=== PATIENT | male | born 1945 | race Caucasian/White ===

== ENCOUNTER 2022-02-09 09:07 | Inpatient (IN) ==
[2022-02-09] MEDS ORDERED: Iopamidol - 370 500 ML MLS IVP ONE (09:30)
[2022-02-09 09:39] LABS: Basophils % 0.2 %; Hemoglobin 10.5 g/dL (12.9-16.9); Red Cell Distribution Width 16.8 % (11.5-14.5)
[2022-02-09 09:40] LABS: Eosinophils % 0.2 %; Hematocrit 32.8 % (37.5-50.1); Immature Granulocytes % 0.6 % (0-4); Immature Platelets 4.1 % (1.1-6.1); Lymphocytes # 0.5 K/mcL (0.6-4.6); Lymphocytes % 9.3 %; Mean Corpuscular Hemoglobin 24.6 pg (28.0-33.3); Mean Platelet Volume 10.3 fL (9.4-12.4); Monocytes # 0.4 K/mcL (0.0-1.3); Monocytes % 7.3 %; Red Blood Count 4.26 M/mcL (4.19-5.50); Segmented Neutrophils % 82.4 %; White Blood Count 5.4 K/mcL (4.3-11.1)
[2022-02-09] MEDS ORDERED: Morphine Sulfate 2 MG/ML SYRINGE IVP ONE (09:41)
[2022-02-09] MEDS ORDERED: Ondansetron 4 MG/2 ML VIAL IVP STA (09:41)
[2022-02-09 09:56] LABS: Neutrophils # 4.5 K/mcL (1.6-8.9); Platelet Count 64 K/mcL (140-400)
[2022-02-09 09:58] LABS: Calcium 9.2 mg/dL (8.6-10.3); Potassium 4.7 mEq/L (3.5-5.1)
[2022-02-09] MEDS ORDERED: Acetaminophen 325 MG TABLET PO ONE (10:53)
[2022-02-09] MEDS ORDERED: 0.9 % Sodium Chloride 1,000 ML IV ONE (11:59)
[2022-02-09] MEDS ORDERED: methylPREDNISolone 125 MG/2 ML VIAL IVP ONE (12:11)
[2022-02-09] MEDS ORDERED: Ipratropium/Albuterol Neb 3 ML IH ONE (12:40)
[2022-02-09] MEDS ORDERED: Naloxone 0.4 MG/ML INJ IVP PRN (13:02)
[2022-02-09] MEDS ORDERED: Dextrose Gel 15 GM/37.5 ML TUBE PO PRN ×2 (13:06)
[2022-02-09] MEDS ORDERED: D5% in Water 1,000 ML IVC PRN (13:06)
[2022-02-09] MEDS ORDERED: *HR* Dextrose 50 % in Water (Syg) 50 ML SYRINGE IVP PRN (13:06)
[2022-02-09 14:29] LABS: INR 1.4; Prothrombin Time 15.4 Seconds (9.4-12.1)
[2022-02-09 14:32] LABS: Activated Partial Thrombo Time 29.1 Seconds (26.0-36.0)
[2022-02-09] MEDS ORDERED: Morphine Sulfate 2 MG/ML SYRINGE IVP PRN (15:40)
[2022-02-09] MEDS: 0.9 % Sodium Chloride 1,000 ML IVC SCH (15:55)
[2022-02-09] MEDS: *HR* HYDROcodone/Acet 5/325 mg TABLET PO PRN ×2 (15:55→20:29)
[2022-02-09] MEDS ORDERED: tiZANidine 4 MG TABLET PO PRN (16:05)
[2022-02-09] MEDS: Insulin LISPRO 300 UNITS/3 ML VIAL SUBQ SCH ×2 (16:49→20:29)
[2022-02-10] MEDS: *HR* HYDROcodone/Acet 5/325 mg TABLET PO PRN ×4 (01:07→20:47)
[2022-02-10] MEDS: 0.9 % Sodium Chloride 1,000 ML IVC SCH ×2 (01:10→09:09)
[2022-02-10 03:12] LABS: Mean Corpuscular Hemoglobin 24.6 pg (28.0-33.3); Red Blood Count 3.57 M/mcL (4.19-5.50)
[2022-02-10 03:14] LABS: Eosinophils % 0.2 %; Hematocrit 27.8 % (37.5-50.1); Hemoglobin 8.8 g/dL (12.9-16.9); Immature Granulocytes % 2.3 % (0-4); Immature Platelets 3.6 % (1.1-6.1); Lymphocytes # 0.6 K/mcL (0.6-4.6); Lymphocytes % 10.5 %; Mean Corpuscular HGB Conc 31.7 g/dL (31.6-35.5); Mean Corpuscular Volume 77.9 fL (83.0-100.0); Mean Platelet Volume 10.7 fL (9.4-12.4); Monocytes # 0.4 K/mcL (0.0-1.3); Monocytes % 6.6 %; Neutrophils # 4.6 K/mcL (1.6-8.9); Red Cell Distribution Width 17.1 % (11.5-14.5); Segmented Neutrophils % 80.4 %; White Blood Count 5.7 K/mcL (4.3-11.1)
[2022-02-10 03:26] LABS: Platelet Count 65 K/mcL (140-400)
[2022-02-10 03:33] LABS: Calcium 8.7 mg/dL (8.6-10.3); Magnesium 1.4 mg/dL (1.6-2.6); Phosphorous 4.1 mg/dL (2.7-4.5); Potassium 4.5 mEq/L (3.5-5.1)
[2022-02-10] MEDS ORDERED: Regadenoson 0.4 MG/5 ML SYRINGE IVP ONE ×2 (06:19→12:05)
[2022-02-10] MEDS ORDERED: Nitroglycerin 0.4 MG TAB.SUBL SL PRN (08:09)
[2022-02-10] MEDS: Aspirin Enteric Coated 81 MG Tablet PO SCH (09:08)
[2022-02-10] MEDS: Famotidine 20 MG TABLET PO SCH (09:08)
[2022-02-10] MEDS: ZINC GLUCONATE 100 MG PO SCH (09:22)
[2022-02-10] MEDS: Insulin LISPRO 300 UNITS/3 ML VIAL SUBQ SCH ×4 (09:38→20:47)
[2022-02-10] MEDS: Acetaminophen 325 MG TABLET PO PRN (11:10)
[2022-02-10 12:33] LABS: Bacteria,Urine Few per hpf (None-Few); Bilirubin,Urine Negative (Negative); Blood,Urine Negative (Negative); Clarity,Urine Turbid (Clear); Color,Urine Yellow (Yellow); Glucose,Urine (UA) 100 mg/dL (Normal); Ketones,Urine Trace mg/dL (Negative); Leukocyte Esterase,Urine Negative (Negative); Mucus,Urine Few per lpf (None-Few); Nitrite,Urine Negative (Negative); Protein,Urine 100 mg/dL (Neg-Trace); Specific Gravity,Urine > 1.030 (1.010-1.025); Squamous Epithelial Cell,Urine Few per hpf (None-Few); WBC,Urine 0-3 per hpf (0-3)
[2022-02-10 13:51] LABS: Adenovirus Not Detected (Not Detect); Bordetella Pertussis Not Detected (Not Detect); Chlamydophila pneumoniae Not Detected (Not Detect); Coronavirus 229E Not Detected (Not Detect); Coronavirus HKU1 Not Detected (Not Detect); Coronavirus NL63 Not Detected (Not Detect); Coronavirus OC43 Not Detected (Not Detect); Human Metapneumovirus Not Detected (Not Detect); Human Rhinovirus/Enterovirus Not Detected (Not Detect); Influenza A Subtype 2009 H1 Not Detected (Not Detect); Influenza B Not Detected (Not Detect); Mycoplasma pneumoniae Not Detected (Not Detect); Parainfluenza Virus 1 Not Detected (Not Detect); Parainfluenza Virus 2 Not Detected (Not Detect); Parainfluenza Virus 3 Not Detected (Not Detect); Parainfluenza Virus 4 Not Detected (Not Detect); Respiratory Syncytial Virus Not Detected (Not Detect); SARS-CoV-2 Not Detected (Not Detect)
[2022-02-10] MEDS: Magnesium Oxide 400 MG TABLET PO SCH (15:12)
[2022-02-10] MEDS ORDERED: Chloraseptic Spray 177 ML BOTTLE MM PRN (15:41)
[2022-02-11] MEDS: Acetaminophen 325 MG TABLET PO PRN ×2 (00:20→08:28)
[2022-02-11] MEDS: 0.9 % Sodium Chloride 1,000 ML IVC SCH (00:21)
[2022-02-11 02:57] LABS: Red Cell Distribution Width 17.1 % (11.5-14.5)
[2022-02-11 02:59] LABS: Hemoglobin 8.5 g/dL (12.9-16.9); Immature Platelets 2.7 % (1.1-6.1); Mean Corpuscular HGB Conc 31.5 g/dL (31.6-35.5); Mean Corpuscular Hemoglobin 24.7 pg (28.0-33.3); Mean Corpuscular Volume 78.5 fL (83.0-100.0); Mean Platelet Volume 10.3 fL (9.4-12.4); Red Blood Count 3.44 M/mcL (4.19-5.50); White Blood Count 5.4 K/mcL (4.3-11.1)
[2022-02-11 03:06] LABS: Calcium 7.7 mg/dL (8.6-10.3); Potassium 4.1 mEq/L (3.5-5.1)
[2022-02-11 03:07] LABS: % Iron Saturation 7 % (20-55); Iron 13 mcg/dL (65-175); Transferrin 137 mg/dL (203-362)
[2022-02-11 03:25] LABS: Ferritin 465 ng/mL (20-250)
[2022-02-11 03:30] LABS: Folate 3.4 ng/mL (3.0-16.0)
[2022-02-11] MEDS: *HR* HYDROcodone/Acet 5/325 mg TABLET PO PRN ×2 (04:41→12:32)
[2022-02-11] MEDS: Famotidine 20 MG TABLET PO SCH (08:25)
[2022-02-11] MEDS: Insulin LISPRO 300 UNITS/3 ML VIAL SUBQ SCH ×4 (08:25→20:36)
[2022-02-11] MEDS: Magnesium Oxide 400 MG TABLET PO SCH (08:25)
[2022-02-11] MEDS: Aspirin Enteric Coated 81 MG Tablet PO SCH (08:25)
[2022-02-11] MEDS: ZINC GLUCONATE 100 MG PO SCH (08:25)
[2022-02-11 14:34] LABS: Immature Reticulocyte % 16.7 % (11.0-38.0); Retculocyte # 0.05 M/mcL (0.05-0.10); Reticulocyte % 1.4 % (1.6-2.8)
[2022-02-11 14:49] LABS: INR 1.3; Prothrombin Time 14.3 Seconds (9.4-12.1)
[2022-02-11 14:51] LABS: Activated Partial Thrombo Time 25.2 Seconds (26.0-36.0)
[2022-02-11 14:58] LABS: Uric Acid 4.9 mg/dL (2.3-7.6)
[2022-02-11 15:11] LABS: Thyroid Stimulating Hormone 3.866 mcIU/mL (0.340-5.600)
[2022-02-11 15:12] LABS: Basophils % 0.2 %; Eosinophils % 0.2 %; Hematocrit 27.3 % (37.5-50.1); Hemoglobin 8.6 g/dL (12.9-16.9); Immature Granulocytes % 8.8 % (0-4); Immature Platelets 2.4 % (1.1-6.1); Lymphocytes # 0.4 K/mcL (0.6-4.6); Lymphocytes % 10.1 %; Mean Corpuscular HGB Conc 31.5 g/dL (31.6-35.5); Mean Corpuscular Volume 79.4 fL (83.0-100.0); Mean Platelet Volume 9.8 fL (9.4-12.4); Monocytes # 0.2 K/mcL (0.0-1.3); Monocytes % 3.7 %; Neutrophils # 3.3 K/mcL (1.6-8.9); Red Blood Count 3.44 M/mcL (4.19-5.50); Red Cell Distribution Width 17.2 % (11.5-14.5); White Blood Count 4.3 K/mcL (4.3-11.1)
[2022-02-11 15:13] LABS: Platelet Count 86 K/mcL (140-400)
[2022-02-11 15:54] LABS: Platelet Estimate Decreased (Normal)
[2022-02-11] MEDS ORDERED: Saline Nasal Spray 44 ML BOTTLE NS PRN (17:55)
[2022-02-11] MEDS: Fluticasone Propionate Nasal 50 MCG/SPRAY BOTTLE NS SCH (19:29)
[2022-02-11] MEDS ORDERED: cefTRIAXone 1,000 MG in 0.9 % Sodium Chloride Mini Bag 100 ML IVPB SCH (22:00)
[2022-02-12 03:24] VITALS: O2SAT 98
[2022-02-12 08:02] LABS: Hematocrit 25.4 % (37.5-50.1); Immature Platelets 2.3 % (1.1-6.1); Mean Corpuscular HGB Conc 31.5 g/dL (31.6-35.5); Mean Corpuscular Hemoglobin 24.8 pg (28.0-33.3); Mean Corpuscular Volume 78.9 fL (83.0-100.0); Mean Platelet Volume 9.7 fL (9.4-12.4); Red Blood Count 3.22 M/mcL (4.19-5.50); Red Cell Distribution Width 17.2 % (11.5-14.5); White Blood Count 4.6 K/mcL (4.3-11.1)
[2022-02-12 08:20] LABS: Calcium 7.7 mg/dL (8.6-10.3); Potassium 4.2 mEq/L (3.5-5.1)
[2022-02-12 08:30] VITALS: BP 136/59; PULSE 73; TEMP 98
[2022-02-12] MEDS ORDERED: Zinc Sulfate 220 MG CAPSULE PO SCH (09:00)
[2022-02-12] MEDS: Magnesium Oxide 400 MG TABLET PO SCH (09:42)
[2022-02-12] MEDS: Famotidine 20 MG TABLET PO SCH (09:42)
[2022-02-12] MEDS: Aspirin Enteric Coated 81 MG Tablet PO SCH (09:42)
[2022-02-12] MEDS: Fluticasone Propionate Nasal 50 MCG/SPRAY BOTTLE NS SCH (09:44)
[2022-02-12] MEDS: Insulin LISPRO 300 UNITS/3 ML VIAL SUBQ SCH ×2 (09:47→13:52)
[2022-02-12] MEDS ORDERED: Folic Acid 1 MG TABLET PO SCH (12:00)
[2022-02-12] MEDS: *HR* HYDROcodone/Acet 5/325 mg TABLET PO PRN (14:19)
== END 2022-02-12 16:51 | disposition home or self-care (01) | DRG 552 ==
LOC: EMEROOARM 09:07 → 2ANU 09:07 → SUATTDRO 13:17 → 2ANU 14:45 → 4WAOSI 02-11 14:38
PROVIDERS: ADMIT Internal Medicine; ATTEND Internal Medicine